=== PATIENT | male | born 1980 | race African-American/Black ===

== ENCOUNTER 2018-10-18 07:50 | Emergency (ER) | payer OTHER ==
[2018-10-18 07:54] VITALS: BP 141/88; PULSE 69; TEMP 98.7; BMI 23.6
[2018-10-18] MEDS ORDERED: IBUPROFEN 600 MG TABLET (FP) PO ONE ×2 (08:25→08:45)
--- NOTE | 2018-10-18 08:50 | PDOC ---
History of Present Illness - General Chief Complaint: Pain, Acute Stated Complaint: LEFT FOOT PAIN Time Seen by Provider: 10/18/18 08:03 History Source: Patient (Patient walked in complaining of pain in the left foot after his foot got caught at work in between a jasson hmmer and a metal pipe) Exam Limitations: No Limitations - History of Present Illness Timing/Duration: 24 hours Severity: mild, moderate Modifying Factors: improves with: cold therapy, rest Associated Symptoms: reports: denies symptoms Past History - Travel Traveled outside of the country in the last 30 days: No Close contact w/someone who was outside of country & ill: No - Past Medical History Allergies/Adverse Reactions: Allergies Allergy/AdvReac Type Severity Reaction Status Date / Time No Known Allergies Allergy Verified 10/18/18 07:51 Home Medications: Ambulatory Orders Ibuprofen [Motrin -] 400 mg PO TID #21 tablet 10/18/18 COPD: No CHF: No - Suicide/Smoking/Psychosocial Hx Smoking History: Never smoked Hx Alcohol Use: Yes Drug/Substance Use Hx: No Review of Systems - Review of Systems Able to Perform ROS?: Yes Is the patient limited Guyanese proficient: Yes Constitutional: No: Symptoms Reported, See HPI, Chills, Diaphoresis, Fever, Loss of Appetite, Malaise, Night Sweats, Weakness, Weight Stable, Unintentional Wgt. Loss, Unexplained wgt Loss, Other HEENTM: No: Symptoms Reported, See HPI, Eye Pain, Blurred Vision, Tearing, Recent change in vision, Double Vision, Cataracts, Ear Pain, Ocular Prothesis, Ear Discharge, Nose Pain, Nose Congestion, Tinnitus, Nose Bleeding, Hearing Loss , Throat Pain, Throat Swelling, Mouth Pain, Dental Problems, Difficulty Swallowing, Mouth Swelling, Other Respiratory: No: Symptoms reported, See HPI, Cough, Orthopnea, Shortness of Breath, SOB with Exertion, SOB at Rest, Stridor, Wheezing, Productive cough, Hemoptysis, Other Cardiac (ROS): No: Symptoms Reported, See HPI, Chest Pain, Edema, Irregular Heart Rate, Lightheadedness, Palpitations, Syncope, Chest Tightness, Other ABD/GI: No: Symptoms Reported, See HPI, Abdominal Distended, Abd. Pain w/ defecation, Blood Streaked Bowels, Constipated, Diarrhea, Difficulty Swallowing , Nausea, Poor Appetite, Poor Fluid Intake, Rectal Bleeding, Vomiting, Indigestion, Abdominal cramping, Tarry Stools, Other Musculoskeletal: Yes: Symptoms Reported, See HPI, Joint Pain Integumentary: No: Symptoms Reported, See HPI, Bruising, Change in Color, Change in Hair/Nails, Dryness, Erythema, Flushing, Lesions, Lumps, Pallor, Pruritus, Rash, Sweating, Other All Other Systems: Reviewed and Negative *Physical Exam - Vital Signs Last Vital Signs Temp Pulse Resp BP Pulse Ox 98.7 F 69 18 141/88 100 10/18/18 07:51 10/18/18 07:51 10/18/18 07:51 10/18/18 07:51 10/18/18 07:51 - Physical Exam General Appearance: Yes: Nourished, Appropriately Dressed, Mild Distress, Thin Neck: positive: Supple Vascular Pulses: Dorsalis-Pedis (R): 4+, Doralis-Pedis (L): 4+ Extremity: positive: Normal Capillary Refill, Normal Inspection, Other (Mild to moderate pain at palpation over the dorsum of the left foot ) Integumentary: positive: Normal Color, Dry, Warm Neurologic: positive: Fully Oriented, Alert, Normal Mood/Affect Moderate Sedation - Procedure Monitoring Vital Signs: Procedure Monitoring Vital Signs Temperature 98.7 F 10/18/18 07:51 Pulse Rate 69 10/18/18 07:51 Respiratory Rate 18 10/18/18 07:51 Blood Pressure 141/88 10/18/18 07:51 O2 Sat by Pulse Oximetry (%) 100 10/18/18 07:51 ED Treatment Course - RADIOLOGY Radiology Studies Ordered: Category Date Time Status FOOT-LEFT [RAD] Stat Radiology 10/18/18 07:55 Completed Medical Decision Making - Medical Decision Making Patient seen immediately from arrival. PE performed Pain control achieved with Motrin 600 X ray read as negative Barry bandage, crutches applied / provided 10/18/18 09:11 *DC/Admit/Observation/Transfer Diagnosis at time of Disposition: Injury of left foot Qualifiers: Encounter type: initial encounter Qualified Code(s): S99.922A - Unspecified injury of left foot, initial encounter - Discharge Dispostion Disposition: HOME Condition at time of disposition: Stable Decision to Admit order: No - Prescriptions Prescriptions: Ibuprofen [Motrin -] 400 mg PO TID #21 tablet - Referrals Referrals: Parsons,Gigi, MD [Staff Physician] - - Patient Instructions Printed Discharge Instructions: DI for Contusion Additional Instructions: elevation. rest if pain continues follow up with your doctor - Post Discharge Activity Forms/Work/School Notes: Back to Work
== END 2018-10-18 09:10 | disposition home or self-care (01) ==
LOC: FER 07:50
CPT/HCPCS: 73630-TC-LT; 99282-25

== ENCOUNTER 2021-04-17 08:07 | Emergency (ER) | payer BC ==
[2021-04-17 08:23] VITALS: BMI 25.1
[2021-04-17] MEDS ORDERED: amLODIPine BESYLATE 5 MG TABLET (FP) PO ONE ×2 (09:07→10:17)
[2021-04-17] MEDS ORDERED: amLODIPine BESYLATE 5 MG TABLET (FP) ONE ×2 (09:17→10:44)
[2021-04-17 11:23] VITALS: BP 162/102; PULSE 62; TEMP 98.6
== END 2021-04-17 11:26 | disposition home or self-care (01) ==
LOC: JER 08:07
DX: I16.0 Hypertensive urgency (principal)
CPT/HCPCS: 93005; 93010; 99283-25

== ENCOUNTER → 2021-04-17 | Day surgery (SDC) | payer BC ==
[2021-04-14 17:01] VITALS: BMI 24.5
[~2021-04-17] MED LIST: DEXAMETHASONE SOD PHOSPHATE 4 MG/1 ML VIAL ONE; LIDOCAINE HCL/PF 2% SDV 5ML VIAL ONE; MIDAZOLAM HCL 2 MG/2 ML SINGLE DOSE VIAL ONE; ONDANSETRON 4 MG/2 ML VIAL ONE; PROPOFOL 20 ML ONE; ROCURONIUM BROMIDE 50 MG/5 ML SYRINGE ONE; SUCCINYLCHOLINE CHLORIDE 200 MG/10 ML SYRINGE ONE; fentaNYL CITRATE 250 MCG/5 ML VIAL ONE
[2021-04-17 07:00] VITALS: BP 174/106; PULSE 61; TEMP 98.3
== END | disposition home or self-care (01) ==
LOC: J2C 04:53 → UNDOADMIN 04:53 → EDSTATUS 08:00 → JASU-SURG 09:21
PROVIDERS: ATTEND Neurological Surgery
DX: Z53.8 Procedure and treatment not carried out for other reasons (principal)

== ENCOUNTER 2021-04-30 04:38 | Inpatient (IN) | payer BC ==
[2021-04-29 16:54] VITALS: BMI 24.5
[2021-04-30] MEDS ORDERED: DEXAMETHASONE SOD PHOSPHATE 4 MG/1 ML VIAL ONE (07:18)
[2021-04-30] MEDS ORDERED: ceFAZolin SODIUM 1 GM VIAL ONE (07:18)
[2021-04-30] MEDS ORDERED: LIDOCAINE HCL/PF 2% SDV 5ML VIAL ONE (07:18)
[2021-04-30] MEDS ORDERED: MINERAL OIL/PETROLATUM,WHITE 3.5 GM TUBE ONE (07:18)
[2021-04-30] MEDS ORDERED: ONDANSETRON 4 MG/2 ML VIAL ONE ×2 (07:18→09:19)
[2021-04-30] MEDS ORDERED: PROPOFOL 20 ML ONE ×2 (07:28)
[2021-04-30] MEDS ORDERED: ROCURONIUM BROMIDE 50 MG/5 ML SYRINGE ONE (07:30)
[2021-04-30] MEDS ORDERED: LIDOCAINE 1%/EPI 1:100000 (20 ML MULTI DOSE VIAL) ONE (07:35)
[2021-04-30] MEDS ORDERED: THROMBIN (BOVINE) 20,000 UNIT VIAL TP ONE (07:36)
[2021-04-30] MEDS ORDERED: BUPIVACAINE HCL/PF 0.5% (5MG/ML) 10 ML VIAL ONE (07:36)
[2021-04-30] MEDS ORDERED: MIDAZOLAM HCL 2 MG/2 ML SINGLE DOSE VIAL ONE (07:50)
[2021-04-30] MEDS ORDERED: BACITRACIN 50,000 UNITS VIAL NR ONE (08:27)
[2021-04-30] MEDS ORDERED: fentaNYL CITRATE 250 MCG/5 ML VIAL ONE (08:27)
[2021-04-30] MEDS ORDERED: LIDOCAINE 1%/EPI 1:100000 (20 ML MULTI DOSE VIAL) IJ ONE (08:40)
[2021-04-30] MEDS ORDERED: VANCOMYCIN 1,000 MG VIAL (RESTRICTED TO ID ONLY) ONE (08:43)
[2021-04-30] MEDS ORDERED: ceFAZolin SODIUM 1 GM VIAL IVPB ONE (08:48)
[2021-04-30] MEDS ORDERED: VANCOMYCIN 1,000 MG VIAL (RESTRICTED TO ID ONLY) IVPB ONE (08:48)
[2021-04-30] MEDS ORDERED: ESMOLOL HCL 100,000 MCG/10 ML VIAL ONE (08:54)
[2021-04-30] MEDS ORDERED: METOPROLOL TARTRATE 5 MG/5 ML VIAL ONE (08:54)
[2021-04-30] MEDS ORDERED: GLYCOPYRROLATE 0.2 MG/1 ML VIAL ONE (09:35)
[2021-04-30] MEDS ORDERED: NEOSTIGMINE METHYLSULFATE 0.5 MG/1 ML - 10 ML MDV ONE (09:35)
[2021-04-30] MEDS ORDERED: oxyCODONE HCL 5 MG TABLET PO PRN (09:44)
[2021-04-30] MEDS ORDERED: ONDANSETRON 4 MG/2 ML VIAL IVPUSH PRN (09:44)
[2021-04-30] MEDS ORDERED: THROMBIN (BOVINE) 5,000 UNIT VIAL TP ONE (10:19)
[2021-04-30] MEDS: LACTATED RINGERS SOLUTION 1,000 ML IV SCH ×2 (10:30→23:53)
[2021-04-30] MEDS ORDERED: hydrALAZINE HCL 20 MG/ML VIAL IVPUSH ONE ×2 (10:56→13:17)
[2021-04-30] MEDS: hydrALAZINE HCL 20 MG/ML VIAL ONE ×2 (10:57→12:55)
[2021-04-30] MEDS ORDERED: HYDROmorphone HCl 2 MG/ML VIAL IVPUSH ONE (10:57)
[2021-04-30] MEDS ORDERED: HYDROmorphone HCl 2 MG/ML VIAL ONE (13:44)
[2021-04-30] MEDS: LABETALOL HCL 200 MG TABLET (FP) PO SCH ×2 (15:22→21:33)
[2021-04-30] MEDS: CEFAZOLIN 2 GM/D5W 2 GM/50 ML ML IVPB SCH ×2 (15:43→21:33)
[2021-04-30] MEDS: oxyCODONE HCL 5 MG TABLET PO PRN ×2 (17:50→22:30)
[2021-05-01] MEDS: CEFAZOLIN 2 GM/D5W 2 GM/50 ML ML IVPB SCH (01:27)
[2021-05-01] MEDS: oxyCODONE HCL 5 MG TABLET PO PRN ×3 (02:23→10:25)
[2021-05-01] MEDS: LABETALOL HCL 200 MG TABLET (FP) PO SCH (10:31)
[2021-05-01 10:37] VITALS: BP 171/95; PULSE 71; TEMP 97.5
== END 2021-05-01 13:31 | disposition home or self-care (01) | DRG 473 ==
LOC: J2C 04:38 → J8W 15:01
PROVIDERS: ADMIT Neurological Surgery; ATTEND Neurological Surgery
PROC: 0RG10A0 Fusion of Cervical Vertebral Joint with Interbody Fusion Device, Anterior Approach, Anterior Column, Open Approach (ICD-10-PCS; 2021-04-30)
PROC: 01N10ZZ Release Cervical Nerve, Open Approach (ICD-10-PCS; 2021-04-30)
PROC: B01BZZZ Fluoroscopy of Spinal Cord (ICD-10-PCS; 2021-04-30)
PROC: 4A1004G Monitoring of Central Nervous Electrical Activity, Intraoperative, Open Approach (ICD-10-PCS; 2021-04-30)
PROC: 0PB30ZZ Excision of Cervical Vertebra, Open Approach (ICD-10-PCS; principal; 2021-04-30 08:00)
DX: M47.892 Other spondylosis, cervical region (principal); M48.02 Spinal stenosis, cervical region
CPT/HCPCS: 72125-TC; 76000-TC-FY; 86850; 86900; 86901; 94010; 94760; 97116-GP; 97161-GP